=== PATIENT | female | born 1995 | race Caucasian/White ===

== ENCOUNTER 2017-01-18 23:27 | Emergency (ER) | payer BC ==
[2017-01-18 23:32] VITALS: RESP 16
[2017-01-19] MEDS ORDERED: LET GEL TOPICAL 1 EA SYR TP ONE (00:39)
--- NOTE | 2017-01-19 00:51 | EDPHY ---
H & P Stated Complaint: pt intoxicated, slipped hit head on railing, no loc - Medical/Surgical History Hx Asthma: No Hx Chronic Respiratory Disease: No Hx Diabetes: No Hx Cardiac Disease: No Hx Renal Disease: No Hx Cirrhosis: No Hx Alcoholism: No Hx HIV/AIDS: No Hx Splenectomy or Spleen Trauma: No Other PMH: TONSILS OUT, ovarian cyst removed - Social History Smoking Status: Current some day smoker HPI/ROS: Chief complaint: Head injury History of present illness: This is a 21-year-old female who presents to the emergency department with friends for a head injury. Patient reports this evening while walking she tripped and fell striking her head against a metal railing. She sustained a laceration to her scalp. She has developed swelling. She has had associated mild headache. She does report drinking alcohol this evening and feels intoxicated. There was no loss of consciousness with this. She denies pain in other parts of the body. She denies neurologic symptoms such as paresthesias, weakness or paralysis or bowel or bladder dysfunction. Her immunizations are up-to-date. Review of systems: A 10 point review of systems was obtained and other than described above was negative (Dagoberto Saenz) - Physical Exam Exam: General Appearance:Alert, odor of alcohol on breath Eyes: PERRLA ENT: No hemotympanum, no markham sign, no raccoon eyes Respiratory: Lungs clear to auscultation bilaterally Cardiac: Regular rate and rhythm. Gastrointestinal: Soft, nondistended, nontender. Neurological: Alert. Cranial nerves 2-12 grossly intact. Strength and sensation intact and symmetrical. Skin: 1 cm abrasion to the left parietal scalp. Musculoskeletal: There is mild tenderness around the abrasion without crepitus or bony deformity. The rest of the head is nontender. The spine is nontender to palpation along its entire length without crepitus, bony deformity or step- off. Chest wall intact palpation. Patient moving all extremities without difficulty. She is ambulating on her own. (Dagoberto Saenz) Constitutional: Initial Vital Signs Temperature (C) 37.1 C 01/18/17 23:29 Heart Rate 127 H 01/18/17 23:29 Respiratory Rate 16 01/18/17 23:29 Blood Pressure 128/89 H 01/18/17 23:29 O2 Sat (%) 95 01/18/17 23:29 O2 Delivery Mode Room Air Allergies/Adverse Reactions: No Known Allergies Allergy (Verified 01/18/17 23:32) Home Medications: Medication Instructions Recorded Control 01/18/17 Medical Decision Making - Diagnostics Imaging: Discussed imaging studies w/ call center coordinator Radiologist ED Course/Re-evaluation: Patient seen under the supervision of my secondary supervising physician Dr. Nimco Canela. Patient presents to the emergency department intoxicated having sustained a head injury. On presentation she is nontoxic. She is significantly tachycardic. There is evidence of a head injury. Given level of intoxication I am unable to clear her clinically. Imaging studies are obtained and negative for significant injury. She is observed in the emergency room for an hour and a half and remains well appearing. She has no new complaints. Patient is discharged with sober friends. Home care is discussed. Return precautions are given. Patient voiced understanding and agreement with plan. ( Dagoberto Saenz) Differential Diagnosis: Included but not limited to soft tissue injury, bony fracture, intracranial injury, spinal cord injury (Dagoberto Saenz) Other Provider: PHYSICIAN DOCUMENTATION: The patient was evaluated and managed by the Physician Side Door Worker. My co- signature indicates that I have reviewed this chart and I agree with the findings and plan of care as documented. I am the secondary supervising physician. (Nimco Canela) - Data Points Medications Given: Discontinued Medications Tetracaine/Epinephrine/Lidocaine (Let Gel Topical) 1 ea TP EDNOW ONE Stop: 01/19/17 00:40 Last Admin: 01/19/17 00:47 Dose: Not Given Departure - Departure Disposition: Home, Routine, Self-Care Clinical Impression: Head injury Qualifiers: Encounter type: initial encounter Qualified Code(s): S09.90XA - Unspecified injury of head, initial encounter Scalp abrasion Qualifiers: Encounter type: initial encounter Qualified Code(s): S00.01XA - Abrasion of scalp, initial encounter Condition: Good Instructions: Head Injury (ED), Acute Wounds (ED) Additional Instructions: Follow-up with a primary care doctor this week for recheck If symptoms worsen or new symptoms develop return to the emergency room for recheck Referrals: NONE *PRIMARY CARE P,. [Primary Care Provider] - As per Instructions [facility],. [Clinic] - As per Instructions
[2017-01-19 01:03] VITALS: BP 106/82; PULSE 93; TEMP 97.9; O2SAT 97
== END 2017-01-19 01:04 | disposition home or self-care (01) ==
DX: S09.90XA Unspecified injury of head, initial encounter (principal); S00.01XA Abrasion of scalp, initial encounter; F17.200 Nicotine dependence, unspecified, uncomplicated; W01.198A Fall on same level from slipping, tripping and stumbling with subsequent striking against other object, initial encounter; Y99.8 Other external cause status; Y93.01 Activity, walking, marching and hiking

== ENCOUNTER 2017-06-16 22:21 | Emergency (ER) | payer BC ==
--- NOTE | 2017-06-16 22:39 | EDPHY ---
H & P Stated Complaint: witnessed seizure <1 min, ETOH/xanax/stress today Time Seen by Provider: 06/16/17 22:26 HPI/ROS: Chief Complaint: Seizure, intoxication HPI: 21-year-old female who is been drinking vodka got and taking Xanax this evening had a. Where she lost consciousness and had witnessed seizure-like activity per bystanders. Patient also admits be using Adderall for the last week. This is not her prescription but it by a cough people that she knows to help her study. She does states she has had a seizure 2 years ago after taking a Xanax while on an airplane. Denies any head injuries. No headache. No nausea or vomiting. He denies any time pain or the other injuries at this time. A patient states that was also scoliosis Xanax that she took. Patient was not incontinent. ROS: 10 point Review of Systems is negative except as noted in the HPI. PMH: Denies Social History: No smoking, positive alcohol, positive benzodiazepine and Adderall use without a prescription Family History: non-contributory Physical Exam: Gen: Awake, Alert, the smells of alcohol HEENT: Nose: no rhinorrhea Eyes: PERRLA, EOMI Mouth: Moist mucosa no oral trauma, no tongue abrasions or injuries Neck: Supple, no JVD Chest: nontender, lungs clear to auscultation Heart: S1, S2 normal, no murmur Abd: Soft, non-tender, no guarding Back: no CVA tenderness, no midline tenderness Ext: no edema, non-tender Skin: no rash Neuro: CN II-XII intact, Sensation grossly intact, Strength 5/5 in bilateral upper and lower extremities - Personal History LMP (Females 10-55): IUD In Place Current Tetanus/Diphtheria Vaccine: Yes Current Tetanus Diphtheria and Acellular Pertussis (TDAP): Yes - Medical/Surgical History Hx Asthma: No Hx Chronic Respiratory Disease: No Hx Diabetes: No Hx Cardiac Disease: No Hx Renal Disease: No Hx Cirrhosis: No Hx Alcoholism: No Hx HIV/AIDS: No Hx Splenectomy or Spleen Trauma: No Other PMH: TONSILS OUT, ovarian cyst removed - Social History Smoking Status: Current some day smoker Constitutional: Initial Vital Signs Temperature (C) 36.3 C 06/16/17 22:28 Heart Rate 145 H 06/16/17 22:28 Respiratory Rate 20 06/16/17 22:28 Blood Pressure 145/92 H 06/16/17 22:28 O2 Sat (%) 96 06/16/17 22:28 O2 Delivery Mode Room Air Allergies/Adverse Reactions: No Known Allergies Allergy (Verified 01/18/17 23:32) Home Medications: Medication Instructions Recorded Control 01/18/17 Medical Decision Making ED Course/Re-evaluation: To 21-year-old female brought in for seizure-like activity. Her alcohol is 340. She has also been taking benzos and Adderall. I do not think she had a seizure. Symptoms are more consistent with a syncopal event. She is awake alert and appropriate right now. She has not have an acidosis to suggest a seizure either. I have counseled her on her multiple visits related to alcohol use. I have encouraged her to discontinue drinking a seek help. I have also encouraged her to not take other people's medications and she should stop taking Adderall to help her concentration. Patient is now awake and appropriate. Ambulating unassisted to the bathroom. No current complaints. Medically cleared for discharge. - Data Points Laboratory Results: Laboratory Results 06/16/17 22:47 06/16/17 22:20 06/16/17 06/16/17 06/16/17 22:47 22:20 22:20 WBC 7.45 10^3/uL 10^3/uL (3.80-9.50) RBC 4.09 10^6/uL L 10^6/uL (4.18-5.33) Hgb 14.0 g/dL g/dL (12.6-16.3) Hct 39.0 % % (38.0-47.0) MCV 95.4 fL fL (81.5-99.8) MCH 34.2 pg H pg (27.9-34.1) MCHC 35.9 g/dL g/dL (32.4-36.7) RDW 11.1 % L % (11.5-15.2) Plt Count 279 10^3/uL 10^3/uL (150-400) MPV 9.0 fL fL (8.7-11.7) Neut % (Auto) 35.1 % L % (39.3-74.2) Lymph % (Auto) 57.3 % H % (15.0-45.0) Norman % (Auto) 6.2 % % (4.5-13.0) Eos % (Auto) 0.9 % % (0.6-7.6) Baso % (Auto) 0.4 % % (0.3-1.7) Nucleat RBC Rel Count 0.0 % % (0.0-0.2) Absolute Neuts (auto) 2.61 10^3/uL 10^3/uL (1.70-6.50) Absolute Lymphs (auto) 4.27 10^3/uL H 10^3/uL (1.00-3.00) Absolute Monos (auto) 0.46 10^3/uL 10^3/uL (0.30-0.80) Absolute Eos (auto) 0.07 10^3/uL 10^3/uL (0.03-0.40) Absolute Basos (auto) 0.03 10^3/uL 10^3/uL (0.02-0.10) Absolute Nucleated RBC 0.00 10^3/uL 10^3/uL (0-0.01) Immature Gran % 0.1 % % (0.0-1.1) Immature Gran # 0.01 10^3/uL 10^3/uL (0.00-0.10) Sodium 148 mEq/L H mEq/L (134-144) Potassium 3.8 mEq/L mEq/L (3.5-5.2) Chloride 109 mEq/L mEq/L (97-110) Carbon Dioxide 23 mEq/l mEq/l (22-31) Anion Gap 16 mEq/L mEq/L (8-16) BUN 9 mg/dL mg/dL (7-23) Creatinine 0.8 mg/dL mg/dL (0.6-1.0) Estimated GFR > 60 Glucose 88 mg/dL mg/dL (70-100) Calcium 9.4 mg/dL mg/dL (8.5-10.4) Beta HCG, Qual NEGATIVE Ethyl Alcohol 343 mg/dL H mg/dL (0-10) Departure - Departure Disposition: Home, Routine, Self-Care Clinical Impression: Alcohol intoxication, Polysubstance abuse Condition: Good Instructions: Alcohol Intoxication (ED), Polysubstance Abuse (ED) Additional Instructions: This is her 2nd visit in 6 months related to alcohol use. This is very concerning for an alcohol abuse problem. Please seek help to decrease your alcohol consumption. It is very important not to take other people's medications. Do not take ADHD medications without a prescription from your doctor. Follow up with [facility] in 2-3 days for further care. Contact [facility] for resources to help you with your alcohol use. Referrals: [facility],. [Clinic] - As per Instructions [facility] 24 Hours [Outside] - As per Instructions
[2017-06-16 22:51] LABS: % IMMATURE GRANULYOCYTES 0.1 % (0.0-1.1); ABSOLUTE IMMATURE GRANULOCYTES 0.01 10^3/uL (0.00-0.10); ADD DIFF? NO; ADD MORPH? NO; ADD SCAN? NO; ATYPICAL LYMPHOCYTE FLAG 40 (0-99); FRAGMENT RBC FLAG 0 (0-99); LEFT SHIFT FLG 0 (0-99); LIPEMIA HEMOLYSIS FLAG 90 (0-99); MEAN CELL HEMOGLOBIN 34.2 pg (27.9-34.1); MEAN CELL HEMOGLOBIN CONCENTR. 35.9 g/dL (32.4-36.7); MEAN CELL VOLUME 95.4 fL (81.5-99.8); PLATELET CLUMPS FLAG 0 (0-99); PLATELET COUNT 279 10^3/uL (150-400); RED BLOOD CELL COUNT 4.09 10^6/uL (4.18-5.33); RED CELL DISTRIBUTION WIDTH 11.1 % (11.5-15.2)
[2017-06-16 22:58] LABS: ANION GAP 16 mEq/L (8-16); CALCIUM 9.4 mg/dL (8.5-10.4); CARBON DIOXIDE 23 mEq/l (22-31); CHLORIDE 109 mEq/L (97-110); CREATININE 0.8 mg/dL (0.6-1.0); GLOMERULAR FILTRATION RATE > 60; GLUCOSE 88 mg/dL (70-100); POTASSIUM 3.8 mEq/L (3.5-5.2); SODIUM 148 mEq/L (134-144)
[2017-06-16 23:14] LABS: ETHANOL SERUM 343 mg/dL (0-10)
[2017-06-17 00:12] VITALS: RESP 18
[2017-06-17 03:15] VITALS: BP 128/96; PULSE 92; TEMP 97.9; O2SAT 97
== END 2017-06-17 04:19 | disposition home or self-care (01) ==
LOC: EDUNIT#
DX: F10.129 Alcohol abuse with intoxication, unspecified (principal); F19.10 Other psychoactive substance abuse, uncomplicated; F17.200 Nicotine dependence, unspecified, uncomplicated
CPT/HCPCS: G0480